=== PATIENT | male | born 1960 | race Caucasian/White ===

== ENCOUNTER → 2021-11-11 | Day surgery (SDC) | payer OTHER ==
[~2021-11-11] VITALS: Ht 185.4 cm; Wt 97.2 kg
[~2021-11-11] MED LIST: JANUVIA 100MG100 MG PO; LOVAZA1 GM PO; METFORMIN HCL500 M1 PO; TRULICITY0.75 MG/0. IJ
== END | disposition home or self-care (01) ==
LOC: FAS 06:03
DX: Z12.11 Encounter for screening for malignant neoplasm of colon (principal); D12.2 Benign neoplasm of ascending colon; D12.3 Benign neoplasm of transverse colon; D12.5 Benign neoplasm of sigmoid colon; K57.30 Diverticulosis of large intestine without perforation or abscess without bleeding; E11.9 Type 2 diabetes mellitus without complications; Z86.010 Personal history of colon polyps; Z80.0 Family history of malignant neoplasm of digestive organs; Z79.84 Long term (current) use of oral hypoglycemic drugs; Z79.899 Other long term (current) drug therapy
CPT/HCPCS: J2250; J7120